=== PATIENT | female | born 1960 | race Caucasian/White ===

== ENCOUNTER 2016-08-30 11:35 | Inpatient (IN) | payer OTHER ==
[2016-08-30] MEDS ORDERED: SODIUM CHLORIDE 0.9% 500 ML IV STA (12:24)
[2016-08-30 12:29] LABS: Glucose,Whole Blood 94 mg/dL (75-99)
--- NOTE | 2016-08-30 12:30 | ED ---
General Adult HPI - General Chief complaint: Altered Mental Status Stated complaint: altered mental status Time Seen by Provider: 08/30/16 12:00 Source: patient, RN notes reviewed Mode of arrival: ambulatory Limitations: no limitations - History of Present Illness Initial comments: This is a 55-year-old female presents emergency Department with amnesia of this morning's events. Patient states she doesn't know why she is here. states that she called him at work because she couldn't remember anything. According to the she does not even recall this morning phone call. Patient still does not know why she is here she does not recall speaking with her . Patient has no pain no headache no numbness or weakness. Family states she is not having slurred speech. Droopy face. Patient states she is able to ambulate and move around normally. The only differences in her today was the fact that she forgot this morning's events and continues to forget current events. Patient denies being sick recently. Patient denies any fever chills or cough recently. Patient states she's been under a lot of stress taking care of her mother plus her job and recently there were some concerns about potential cancer and one of her eyes. - Related Data Home Medications Medication Instructions Recorded Confirmed Multivitamins, Thera [Multivitamin] 1 tab PO DAILY 06/14/16 08/30/16 Allergies Allergy/AdvReac Type Severity Reaction Status Date / Time clarithromycin [From Biaxin] Allergy Rash/Hives Verified 08/30/16 12:28 levofloxacin [From Levaquin] Allergy Rash/Hives Verified 08/30/16 12:28 Review of Systems ROS Statement: Those systems with pertinent positive or pertinent negative responses have been documented in the HPI. ROS Other: All systems not noted in ROS Statement are negative. Past Medical History Past Medical History: No Reported History Additional Past Medical History / Comment(s): Hx. of sinus infections. Finished antx. 1 week ago. History of Any Multi-Drug Resistant Organisms: None Reported Additional Past Surgical History / Comment(s): D & C Past Anesthesia/Blood Transfusion Reactions: No Reported Reaction Past Psychological History: No Psychological Hx Reported Smoking Status: Current every day smoker Past Alcohol Use History: None Reported Additional Past Alcohol Use History / Comment(s): Quit smoking 3 days ago. Smoked 1 PPD x 30 yrs. Past Drug Use History: None Reported - Past Family History Mother Family Medical History: No Reported History Father Family Medical History: Cancer General Exam - General Exam Comments Initial Comments: GENERAL: Patient is well-developed and well-nourished. Patient is nontoxic and well- hydrated and is in no acute distress. ENT: Neck is soft and supple. No significant lymphadenopathy is noted. Oropharynx is clear. Moist mucous membranes. Neck has full range of motion without eliciting any pain. EYES: The sclera were anicteric and conjunctiva were pink and moist. Extraocular movements were intact and pupils were equal round and reactive to light. Eyelids were unremarkable. PULMONARY: Unlabored respirations. Good breath sounds bilaterally. No audible rales rhonchi or wheezing was noted. CARDIOVASCULAR: There is a regular rate and rhythm without any murmurs gallops or rubs. ABDOMEN: Soft and nontender with normal bowel sounds. No palpable organomegaly was noted. There is no palpable pulsatile mass. SKIN: Skin is clear with no lesions or rashes and otherwise unremarkable. NEUROLOGIC: Patient is alert and oriented x3. Cranial nerves II through XII are grossly intact. Motor and sensory are also intact. Normal speech, volume and content. Symmetrical smile. Patient is amnestic of this morning's events and he continues to be amnestic about events occurring now MUSCULOSKELETAL: Normal extremities with adequate strength and full range of motion. No lower extremity swelling or edema. No calf tenderness. LYMPHATICS: No significant lymphadenopathy is noted PSYCHIATRIC: Normal psychiatric evaluation. Limitations: no limitations Course Vital Signs 08/30/16 08/30/16 11:58 13:43 Temperature 98.6 F Pulse Rate 68 56 L Respiratory 20 18 Rate Blood Pressure 176/112 137/70 O2 Sat by Pulse 99 100 Oximetry Medical Decision Making - Medical Decision Making His chest x-ray shows no acute abnormality. CT of the brain shows no acute normalities. I went back in the room and her recollection of the mornings events was slightly improved but she still is amnestic of more recent events. I spoke with Dr. Tang he agreed to admit the patient admit the patient I consult neurology patient will be admitted for rule out CVA even though she is acting more like a transient global amnesia. - Lab Data Result diagrams: 08/30/16 12:37 08/30/16 12:37 Lab Results 08/30/16 08/30/16 08/30/16 Range/Units 12:25 12:37 12:37 WBC 7.5 (3.8-10.6) k/uL RBC 5.26 (3.80-5.40) m/uL Hgb 16.5 H (11.4-16.0) gm/dL Hct 48.3 H (34.0-46.0) % MCV 92.0 (80.0-100.0) fL MCH 31.3 (25.0-35.0) pg MCHC 34.1 (31.0-37.0) g/dL RDW 12.5 (11.5-15.5) % Plt Count 263 (150-450) k/uL Neutrophils % 66 % Lymphocytes % 25 % Monocytes % 5 % Eosinophils % 2 % Basophils % 1 % Neutrophils # 5.0 (1.3-7.7) k/uL Lymphocytes # 1.9 (1.0-4.8) k/uL Monocytes # 0.4 (0-1.0) k/uL Eosinophils # 0.1 (0-0.7) k/uL Basophils # 0.1 (0-0.2) k/uL PT (9.0-12.0) sec INR (<1.1) APTT (22.0-30.0) sec Sodium (137-145) mmol/L Potassium (3.5-5.1) mmol/L Chloride (98-107) mmol/L Carbon Dioxide (22-30) mmol/L Anion Gap mmol/L BUN (7-17) mg/dL Creatinine (0.52-1.04) mg/dL Est GFR (MDRD) Af Amer (>60 ml/min/1.73 sqM) Est GFR (MDRD) Non-Af (>60 ml/min/1.73 sqM) Glucose (74-99) mg/dL POC Glucose (mg/dL) 94 (75-99) mg/dL POC Glu Classroom Instructor ID Bowling, Bharati Calcium (8.4-10.2) mg/dL Total Bilirubin (0.2-1.3) mg/dL AST (14-36) U/L ALT (9-52) U/L Alkaline Phosphatase (38-126) U/L Total Creatine Kinase 70 (30-135) U/L CK-MB (CK-2) 0.9 (0.0-2.4) ng/mL CK-MB (CK-2) Rel Index 1.3 Troponin I <0.012 (0.000-0.034) ng/mL Total Protein (6.3-8.2) g/dL Albumin (3.5-5.0) g/dL 08/30/16 08/30/16 Range/Units 12:37 12:37 WBC (3.8-10.6) k/uL RBC (3.80-5.40) m/uL Hgb (11.4-16.0) gm/dL Hct (34.0-46.0) % MCV (80.0-100.0) fL MCH (25.0-35.0) pg MCHC (31.0-37.0) g/dL RDW (11.5-15.5) % Plt Count (150-450) k/uL Neutrophils % % Lymphocytes % % Monocytes % % Eosinophils % % Basophils % % Neutrophils # (1.3-7.7) k/uL Lymphocytes # (1.0-4.8) k/uL Monocytes # (0-1.0) k/uL Eosinophils # (0-0.7) k/uL Basophils # (0-0.2) k/uL PT 10.3 (9.0-12.0) sec INR 1.0 (<1.1) APTT 25.7 (22.0-30.0) sec Sodium 145 (137-145) mmol/L Potassium 4.5 (3.5-5.1) mmol/L Chloride 106 (98-107) mmol/L Carbon Dioxide 26 (22-30) mmol/L Anion Gap 13 mmol/L BUN 15 (7-17) mg/dL Creatinine 0.82 (0.52-1.04) mg/dL Est GFR (MDRD) Af Amer >60 (>60 ml/min/1.73 sqM) Est GFR (MDRD) Non-Af >60 (>60 ml/min/1.73 sqM) Glucose 97 (74-99) mg/dL POC Glucose (mg/dL) (75-99) mg/dL POC Glu Classroom Instructor ID Calcium 9.6 (8.4-10.2) mg/dL Total Bilirubin 0.5 (0.2-1.3) mg/dL AST 26 (14-36) U/L ALT 41 (9-52) U/L Alkaline Phosphatase 76 (38-126) U/L Total Creatine Kinase (30-135) U/L CK-MB (CK-2) (0.0-2.4) ng/mL CK-MB (CK-2) Rel Index Troponin I (0.000-0.034) ng/mL Total Protein 7.7 (6.3-8.2) g/dL Albumin 4.7 (3.5-5.0) g/dL Disposition Clinical Impression: CVA (cerebral vascular accident) Disposition: ADMITTED IP TO THIS [facility] Time of Disposition: 15:27
[2016-08-30 12:52] LABS: Basophils # (A) 0.1 k/uL (0-0.2); Basophils % (A) 1 %; CHCM 33.9; Eosinophils # (A) 0.1 k/uL (0-0.7); Eosinophils % (A) 2 %; HCT 48.3 % (34.0-46.0); HDW 2.44; HGB 16.5 gm/dL (11.4-16.0); Luc # (Auto) 0.11; Luc % (Auto) 1; Lymphocytes # (A) 1.9 k/uL (1.0-4.8); Lymphocytes % (A) 25 %; MCH 31.3 pg (25.0-35.0); MCHC 34.1 g/dL (31.0-37.0); Mean Platelet Volume 6.8; Monocytes # (A) 0.4 k/uL (0-1.0); Monocytes % (A) 5 %; Neutrophils % (A) 66 %; RBC 5.26 m/uL (3.80-5.40); RDW 12.5 % (11.5-15.5); WBC 7.5 k/uL (3.8-10.6); WBC (Perox) 7.48
[2016-08-30 12:56] LABS: ALT 41 U/L (9-52); AST 26 U/L (14-36); Alkaline Phosphatase 76 U/L (38-126); Anion Gap 13 mmol/L; Blood Urea Nitrogen 15 mg/dL (7-17); Calcium 9.6 mg/dL (8.4-10.2); Carbon Dioxide 26 mmol/L (22-30); Chloride 106 mmol/L (98-107); Glucose 97 mg/dL (74-99); Non-African American GFR(MDRD) >60 (>60 ml/min/1.73 sqM); Potassium 4.5 mmol/L (3.5-5.1); Sodium 145 mmol/L (137-145); Total Bilirubin 0.5 mg/dL (0.2-1.3); Total Protein 7.7 g/dL (6.3-8.2)
--- NOTE | 2016-08-30 13:00 | CT ---
EXAMINATION TYPE: CT brain wo con DATE OF EXAM: 08/30/2016 12:54 PM COMPARISON: NONE INDICATION: Patient complains of disorientation. DLP: 1031 mGycm, Automated exposure control for dose reduction was used. CONTRAST: None. CT of the brain is performed utilizing 3 mm thick sections through the posterior fossa and 3 mm thick sections through the remaining calvarium. Study is performed within 24 hours of arrival to the hosp ital. No abnormal hyperdensity is present to suggest an acute intracranial hemorrhage. No mass lesion is evident. No acute infarcts are evident. Ventricles and sulci are appropriate for the patient age. Paranasal sinuses and mastoid air cells within the [id number] are clear. There are subcutaneous calcifications including the left occipital region the anterior mid for head i n near the vertex. IMPRESSIONS: 1. No acute intracranial process.
[2016-08-30 13:03] LABS: Partial Thromboplastin Time 25.7 sec (22.0-30.0); Prothrombin Time 10.3 sec (9.0-12.0)
[2016-08-30 13:22] LABS: Creatine Kinase 70 U/L (30-135)
[2016-08-30 13:33] LABS: Creatine Kinase MB 0.9 ng/mL (0.0-2.4); Troponin I <0.012 ng/mL (0.000-0.034)
--- NOTE | 2016-08-30 14:09 | XR ---
EXAMINATION TYPE: XR chest 2V DATE OF EXAM: 08/30/2016 1:02 PM COMPARISON: NONE HISTORY: Altered mental status FINDINGS: The lungs are clear and there is no pneumothorax, pleural effusion, or focal pneumonia. Hypertrophi c change of the spine noted. IMPRESSION: 1. No acute process.
[2016-08-30] MEDS ORDERED: ASPIRIN 325 MG TAB PO STA (15:28)
--- NOTE | 2016-08-30 20:08 | P.CNNES ---
History of Present Illness Consult date: 08/30/16 Reason for Consult: Episode of acute amnesia and altered mental status. History of Present Illness: This patient is a 55-year-old right-handed white female who was in her usual state of health earlier this morning. According to her was at bedside and provided the medical history she was fine yesterday evening and did not complain of any particular symptoms. Apparently this morning she awoke and did several routine things that she suddenly had no memory of. She was able to call her at work because she was having difficulty with her memory. She did not appear to have any slurring of her speech on the telephone. The immediately came to the home to see how she was doing. Apparently she appeared to have no memory of the events earlier in the morning. She continued to be quite hesitant in being able to provide details of what happened in the morning. She was brought into the emergency room by her for further evaluation. She was seen in the emergency room by Dr. Hedrick who ordered a computed tomography scan of the brain. A CAT scan of the brain came back normal with no evidence of acute stroke or hemorrhage. Apparently she continued to have some degree of amnesia up until about 3 PM in the emergency room. She is now slowly recollecting some of the events earlier in the day. Patient has been under a great deal of stress as she takes care of her elderly mother at home. She has been caring for her for over 14 years. She was also recently told she may have some form of cancer involving the right retina. She has been seen by Dr. Duenas who was having her see a specialist. These events have caused a great deal of stress for her. She is not sure if this has any correlation to the event of this morning. She denied any headache or facial weakness or slurred speech with this particular episode. She has no previous history of TIA or stroke. She underwent recent laboratory testing in May with all normal lab values. She states her serum cholesterol was only slightly elevated but does not require a statin drug. She has been otherwise quite healthy up until this event. She does now slowly remember the events of yesterday evening and some of the events of this morning. Her clinical history is suggesting possibility of transient global amnesia as a cause of her recent event. We would recommend a complete stroke evaluation for this patient. The patient is now admitted and neurology has been consulted for further evaluation and recommendations. Review of Systems Constitutional: Denies chills, Denies fever Eyes: denies blurred vision, denies pain Ears, nose, mouth and throat: Denies headache, Denies sore throat Cardiovascular: Denies chest pain, Denies shortness of breath Respiratory: Denies cough Gastrointestinal: Denies abdominal pain, Denies diarrhea, Denies nausea, Denies vomiting Genitourinary: Denies dysuria, Denies hematuria Musculoskeletal: Denies myalgias Integumentary: Denies pruritus, Denies rash Neurological: Reports confusion, Reports memory loss, Denies numbness, Denies weakness Psychiatric: Denies anxiety, Denies depression Endocrine: Denies fatigue, Denies weight change Past Medical History Past Medical History: No Reported History Additional Past Medical History / Comment(s): Hx. of sinus infections. BRONCHITIS, ENDOMETREOSIS, "SPOT FOUND BY RETINA-HAS APPT TO SEE SPECIALIST" History of Any Multi-Drug Resistant Organisms: None Reported Past Surgical History: Tubal Ligation Additional Past Surgical History / Comment(s): D & C, COLONOSCOPY Past Anesthesia/Blood Transfusion Reactions: No Reported Reaction Past Psychological History: No Psychological Hx Reported Additional Psychological History / Comment(s): LIVES WITH SPOUSE, IS INDEPENDANT , WORKS AT [employer] IN [employer]. Smoking Status: Current every day smoker Past Alcohol Use History: None Reported Additional Past Alcohol Use History / Comment(s): STARTED SMOKING 1986, 1PPD Past Drug Use History: None Reported - Past Family History Mother Family Medical History: CVA/TIA, Seizure Disorder Additional Family Medical History / Comment(s): DEPRESSION Father Family Medical History: Cancer Additional Family Medical History / Comment(s): LUNG CANCER Medications and Allergies Home Medications Medication Instructions Recorded Confirmed Type Multivitamins, Thera [Multivitamin] 1 tab PO DAILY 06/14/16 08/30/16 History Allergies Allergy/AdvReac Type Severity Reaction Status Date / Time clarithromycin [From Biaxin] Allergy Rash/Hives Verified 08/30/16 12:28 levofloxacin [From Levaquin] Allergy Rash/Hives Verified 08/30/16 12:28 Physical Examination - Vital Signs Vital Signs: Vital Signs Temp Pulse Pulse Resp BP BP Pulse Ox 08/30/16 18:18 65 18 08/30/16 18:17 97.6 F 65 18 161/69 95 08/30/16 18:03 98.6 F 59 L 18 154/75 95 08/30/16 17:36 59 L 59 L 18 154/75 154/76 95 08/30/16 17:33 59 L 18 154/75 95 Intake and Output 08/30/16 08/30/16 08/30/16 06:59 14:59 22:59 Intake Total 660 Output Total 150 Balance 510 Intake: Oral 660 Output: Urine 150 Other: Voiding Method Toilet # Voids 1 - Constitutional General appearance: average body habitus, cooperative - EENT EENT: PERRL, mucous membranes moist - Respiratory Respiratory: lungs clear, normal breath sounds - Cardiovascular Cardiovascular: regular rate, normal S1, normal S2 Extremities: no peripheral edema bilaterally - Gastrointestinal Gastrointestinal: normoactive bowel sounds - Integumentary Integumentary: normal - Neurologic Cranial nerve examination: PERRL, EOMI, VFF, V1/V2/V3 grossly intact, face symmetric, tongue midline, intact gag reflex, intact corneal reflex, normal palatal elevation Speech examination: intact Sensorimotor examination: intact Detailed motor examination: grossly full strength in all extremities Motor examination - right side: 5/5: biceps, triceps, wrist flexion, wrist extension, marketing agent, hip flexors, knee extensors, dorsiflexion, toe extension (EHL) , plantarflexion Motor examination - left side: 5/5: biceps, triceps, wrist flexion, wrist extension, marketing agent, hip flexors, knee extensors, dorsiflexion, toe extension (EHL) , plantarflexion Detailed sensory examination: intact Reflex and gait examination: intact Reflexes: 1+: ankle, bicep, knee, tricep - Musculoskeletal Musculoskeletal: no pain - Psychiatric Psychiatric: mood/affect appropriate, cooperative Results - Laboratory Findings CBC and BMP: 08/30/16 12:37 08/30/16 12:37 Assessment and Plan (1) Transient global amnesia Status: Acute Code(s): G45.4 - TRANSIENT GLOBAL AMNESIA (2) TIA (transient ischemic attack) Status: Acute Code(s): G45.9 - TRANSIENT CEREBRAL ISCHEMIC ATTACK, UNSPECIFIED (3) Retinal tumor of right eye Status: Acute Code(s): D49.81 - NEOPLASM OF UNSPECIFIED BEHAVIOR OF RETINA AND CHOROID (4) Anxiety disorder Status: Acute Code(s): F41.9 - ANXIETY DISORDER, UNSPECIFIED Plan: This patient is a 55-year-old right-handed white female admitted with episode of acute onset of amnesia early this morning. Patient was at home and had done several events as usual in the morning. She called her and she was having difficulty with her ability to recollect earlier events of the morning. Her noted that she was clearly not herself. Return to home and found her to be having difficulty with amnesia. She was taken immediately to the emergency room where she was evaluated in the ER by Dr. Hedrick. She underwent a computed tomography scan of the brain which was entirely normal with no evidence of acute stroke or hemorrhage. She was admitted to the hospital for further evaluation. Her neurological examination at this time is nonfocal. Her clinical history is consistent with an episode of transient global amnesia. We would recommend she undergo a complete stroke evaluation including carotid Doppler ultrasound. Her most recent serum cholesterol was within normal range. We would recommend that she be started on one baby aspirin 81 mg daily for secondary stroke prevention. Patient was explained the natural history of TGA. In most cases this is a very isolated event very similar to a TIA. For these reasons we are recommending a complete stroke evaluation. We will continue to monitor her progress closely and will await the results of her carotid Doppler and other laboratory tests. Her neurological examination otherwise is nonfocal at this time. Her overall prognosis remains guarded. Case was discussed at length with the patient and her . All of their questions were answered. We will continue our stroke workup and we'll give further recommendations pending the test results. Time with Patient: Greater than 30
[2016-08-30 21:18] LABS: Appearance,Urine Clear (Clear); Bacteria,Urine Rare /hpf; Bilirubin,Urine Negative (Negative); Glucose,Urine (UA) Negative (Negative); Ketones,Urine Negative (Negative); Leukocyte Esterase,Urine Moderate (Negative); Mucus,Urine Rare /hpf; Nitrite,Urine Negative (Negative); Particle Count 1453; Protein,Urine Negative (Negative); RBC,Urine 3 /hpf (0-5); Specific Gravity,Urine 1.021 (1.001-1.035); Squamous Epithelial Cell,Urine 3 /hpf (0-4); UA Billing (MACRO vs. MICRO) MICRO; WBC,Urine 17 /hpf (0-5)
[2016-08-30 21:26] VITALS: RESP 16
--- NOTE | 2016-08-30 22:09 | US ---
EXAMINATION TYPE: US carotid duplex BILAT DATE OF EXAM: 08/30/2016 8:58 PM COMPARISON: NONE CLINICAL HISTORY: memory loss, on aspirin. EXAM MEASUREMENTS: RIGHT: Peak Systolic Velocity (PSV) cm/sec ----- Right CCA: 80.1 ----- Right ICA: 54.9 ----- Right ECA: 79.0 ICA/CCA ratio: 0.7 RIGHT: End Diastole cm/sec ----- Right CCA: 15.3 ----- Right ICA: 20.0 ----- Right ECA: 12.0 LEFT: Peak Systolic Velocity (PSV) cm/sec ----- Left CCA: 66.0 ----- Left ICA: 75.7 ----- Left ECA: 72.4 ICA/CCA ratio: 1.1 LEFT: End Diastole cm/sec ----- Left CCA: 18.4 ----- Left ICA: 26.3 ----- Left ECA: 13.1 VERTEBRALS (direction of flow): Right Vertebral: Antegrade Left Vertebral: Antegrade Bilateral wall thickening. No elevated velocities or significant stenosis seen. Plaque seen in lef t bulb Grayscale, color Doppler, spectral Doppler imaging performed of the carotid arteries. IMPRESSION: No hemodynamically significant stenosis of the proximal internal carotid arteries bilater ally by Doppler criteria, and indirect measurement of carotid stenosis
[2016-08-31] MEDS: NICOTINE 7MG/24HR PATCH TRANSDERM SCH ×2 (00:14→07:45)
[2016-08-31] MEDS ORDERED: ASPIRIN 325 MG TAB PO SCH (09:00)
[2016-08-31] MEDS ORDERED: HEPARIN SODIUM,PORCINE 5,000 UNIT/ML 1 ML VIAL SQ SCH (09:00)
--- NOTE | 2016-08-31 09:51 | HP ---
DATE OF ADMISSION: DATE OF SERVICE: 08/30/2016 CHIEF COMPLAINT: Change in mental status. HISTORY OF PRESENT ILLNESS: This 55-year-old woman with a past medical history of multiple medical problems including history of sinus infection, bronchitis, endometriosis being followed by Dr. Langston in the outpatient setting apparently was found to be confused today. The patient was unable to remember today's events. says the patient came home from work because she could not remember anything. The patient was found to have a mild urinary tract infection. The CAT scan did not show acute abnormality. Dr. Villasenor is following the patient closely. TGA is being considered. There is no history of fever, rigors or chills. No history of traumata this time. PAST MEDICAL HISTORY: History of bronchitis, endometriosis, history of tubal ligation. Medications prior to admission include: Multivitamins 1 p.o. b.i.d. ALLERGIES: CLARITHROMYCIN, LEVAQUIN. FAMILY HISTORY: History of CVA, TIA, seizure disorder, depression. REVIEW OF SYSTEMS: ENT: No diminished hearing or vision. CARDIOVASCULAR: No angina or palpitations. RESPIRATORY: No cough and hemoptysis. GI: No nausea. : No dysuria. NERVOUS SYSTEM: As mentioned earlier. ALLERGY/IMMUNOLOGY: No asthma or hayfever. MUSCULOSKELETAL: As mentioned earlier. HEMATOLOGY: No history of anemia. ENDOCRINE: No history of diabetes or hypothyroidism. CONSTITUTIONAL: As mentioned earlier. DERMATOLOGY: Negative. RHEUMATOLOGY: Negative. PSYCHIATRY: As mentioned earlier. PHYSICAL EXAMINATION: Patient is alert and oriented x3. Pulse is 65, blood pressure 161/69, respirations 18, temperature 97.3, pulse ox 94% on room air. HEENT: Conjunctivae normal. NECK: No jugular venous distention. CARDIOVASCULAR: S1 and S2, muffled. RESPIRATORY: Breath sounds diminished at the bases. A few rhonchi. No crackles. ABDOMEN: Soft, nontender. No mass palpable. LEGS: No edema, no swelling. NERVOUS SYSTEM: Higher function as mentioned. Cranial nerves II through XII grossly intact. Moves all four limbs. No sensory cerebellar dysfunction. LYMPHATIC: No lymphadenopathy in the neck, axillae or groin. SKIN: No ulcer, rash or bleeding. LABS: Hemoglobin 16.5. CMP within normal limits. UA noted. ASSESSMENT: 1. Transient amnesia, possibly TGA. 2. Possible acute transient ischemic attack. 3. Urinary tract infection with possible early sepsis. 4. History of bronchitis. 5. History of endometriosis. 6. History of nicotine dependence. 7. FULL CODE. RECOMMENDATIONS AND DISCUSSION: In this 55-year-old woman who presented with multiple medical problems, will monitor the patient closely. Continue the current medications, continue symptomatic treatment. Continue with antiplatelet agents. Smoking cessation advised. DVT prophylaxis. Complete neurovascular work-up. Otherwise, continue to monitor. Prognosis guarded because of the multiple complex medical issues. Further recommendations to follow. Copy of dictation forwarded to Dr. Langston who is the primary physician.
[2016-08-31 11:16] VITALS: PULSE 65
--- NOTE | 2016-08-31 11:36 | ECHOF ---
Referral Reason:Stroke MEASUREMENTS -------- HEIGHT: 175.3 cm WEIGHT: 81.7 kg BP: 131/59 RVIDd: 3.0 cm (< 3.3) IVSd: 1.1 cm (0.6 - 1.1) LVIDd: 4.0 cm (3.9 - 5.3) LVPWd: 1.1 cm (0.6 - 1.1) IVSs: 1.6 cm LVIDs: 2.5 cm LVPWs: 1.3 cm LA Diam: 3.3 cm (2.7 - 3.8) LAESV Index (A-L): 29.25 ml/m Ao Diam: 2.9 cm (2.0 - 3.7) AV Cusp: 2.2 cm (1.5 - 2.6) MV EXCURSION: 17.766 mm (> 18.000) MV EF SLOPE: 57 mm/s (70 - 150) EPSS: 0.4 cm MV E Collins: 0.81 m/s MV DecT: 231 ms MV A Collins: 0.80 m/s MV E/A Ratio: 1.01 RAP: 5.00 mmHg RVSP: 14.89 mmHg FINDINGS -------- Sinus rhythm. This was a technically good study. The left ventricular size is normal. There is borderline concentric left ventricular hypertrophy. Overall left ventricular systolic function is normal with, an EF between 60 - 65 %. The right ventricle is normal in size and function. LA is midly dilated 29-33ml/m2. The right atrium is normal in size. The aortic valve is trileaflet and appears structurally normal. Normal appearing mitral valve. No mitral regurgitation. Trace tricuspid regurgitation present. Trace/mild (physiologic) pulmonic regurgitation. The aortic root size is normal. Normal inferior vena cava with normal inspiratory collapse consistent with estimated right atrial pressure of 5 mmHg. There is no pericardial effusion. CONCLUSIONS -------- 1. Sinus rhythm. 2. Normal appearing mitral valve. 3. Trace tricuspid regurgitation present. 4. Trace/mild (physiologic) pulmonic regurgitation. 5. The aortic root size is normal. 6. Normal inferior vena cava with normal inspiratory collapse consistent with estimated right atrial pressure of 5 mmHg. 7. There is no pericardial effusion. 8. This was a technically good study. 9. The left ventricular size is normal. 10. There is borderline concentric left ventricular hypertrophy. 11. Overall left ventricular systolic function is normal with, an EF between 60 - 65 %. 12. The right ventricle is normal in size and function. 13. LA is midly dilated 29-33ml/m2. 14. The right atrium is normal in size. 15. The aortic valve is trileaflet and appears structurally normal. COIL INSPECTOR: Helga Farrar RDCS
[2016-08-31 15:41] VITALS: BP 138/76; TEMP 96.8
--- NOTE | 2016-08-31 18:01 | P.PN ---
Subjective This patient is a 55-year-old right-handed white female who was admitted yesterday to the hospital with symptoms of acute amnesia. She underwent a full neurological evaluation yesterday including computed tomography scan of the brain which came back negative for acute stroke or hemorrhage. She underwent a carotid Doppler ultrasound which is negative for any significant carotid artery stenosis. She underwent routine EEG today which was reviewed and is normal for her age. Her clinical history is consistent with an episode of transient global amnesia. We reviewed the results today with the patient. We suggest she be maintained on 1 aspirin daily for secondary stroke prevention. We've explained that the episode of amnesia should continue to improve with time. Patient is being considered for discharge home later today. She may follow-up in the outpatient neurology clinic in 3-4 weeks. Objective - Vital Signs Vital signs: Vital Signs Temp 96.8 F L 08/31/16 15:40 Pulse 65 08/31/16 15:40 Resp 16 08/31/16 15:40 BP 138/76 08/31/16 15:40 Pulse Ox 95 08/31/16 15:40 Intake & Output 08/30/16 08/31/16 08/31/16 18:59 06:59 18:59 Intake Total 660 546 Output Total 150 Balance 510 546 Weight 86.5 kg Intake: IV 70 .9 @ 20 20 cefTRIAXone 1,000 mg In 50 Sodium Chloride 0.9% 50 ml @ 100 mls/hr IVPB Q24H [facility] Rx#:[id number] Oral 660 476 Output: Urine 150 Other: Voiding Method Toilet Toilet Toilet # Voids 1 1 - Exam Physical examination: PHYSICAL EXAMINATION: Patient is resting comfortably in bed. VITAL SIGNS: Blood pressure is [138/76]. Heart rate is [65]. Respiration is [16] . Temperature is [97.0]. HEENT: Head is atraumatic, neck is supple, there were no carotid bruits. CHEST: Lungs are clear to auscultation and percussion. CARDIAC: S1, S2 normal rate and rhythm. There is no murmur. ABDOMEN: Soft and nontender. Bowel sounds are present. EXTREMITIES: There is no pedal edema. Peripheral pulses are present. NEUROLOGICAL EXAMINATION: MENTAL STATUS: Patient is awake, alert, oriented x3. Speech is fluent with no evidence of aphasia or dysarthria. Memory and intellectual function are appropriate for age. CRANIAL NERVE EXAMINATION: Cranial nerves 2 through 12 are grossly intact. MOTOR EXAMINATION: There was no pronator drift. Muscle tone is normal. Muscle strength testing reveal 4/5 strength throughout. SENSORY EXAMINATION: Intact to pinprick, light touch, vibration and proprioception. DEEP TENDON REFLEXES: 1+ and symmetric. Plantar response is flexor bilaterally. COORDINATION AND GAIT: Finger-nose testing and rapid alternating movements are normal. Patient has a normal based gait. - Labs CBC & Chem 7: 08/30/16 12:37 08/30/16 12:37 Labs: Abnormal Lab Results - Last 24 Hours (Table) 08/30/16 Range/Units 21:05 Urine Blood Trace H (Negative) Ur Leukocyte Esterase Moderate H (Negative) Urine WBC 17 H (0-5) /hpf Urine Bacteria Rare H (None) /hpf Urine Mucus Rare H (None) /hpf Assessment and Plan (1) Transient global amnesia Status: Acute Code(s): G45.4 - TRANSIENT GLOBAL AMNESIA (2) TIA (transient ischemic attack) Status: Acute Code(s): G45.9 - TRANSIENT CEREBRAL ISCHEMIC ATTACK, UNSPECIFIED (3) Retinal tumor of right eye Status: Acute Code(s): D49.81 - NEOPLASM OF UNSPECIFIED BEHAVIOR OF RETINA AND CHOROID (4) Anxiety disorder Status: Acute Code(s): F41.9 - ANXIETY DISORDER, UNSPECIFIED Plan: This patient is a 55-year-old right-handed white female admitted with episode of acute onset of amnesia early this morning. Patient was at home and had done several events as usual in the morning. She called her and she was having difficulty with her ability to recollect earlier events of the morning. Her noted that she was clearly not herself. Return to home and found her to be having difficulty with amnesia. She was taken immediately to the emergency room where she was evaluated in the ER by Dr. Hedrick. She underwent a computed tomography scan of the brain which was entirely normal with no evidence of acute stroke or hemorrhage. She was admitted to the hospital for further evaluation. Her neurological examination at this time is nonfocal. Her clinical history is consistent with an episode of transient global amnesia. We would recommend she undergo a complete stroke evaluation including carotid Doppler ultrasound. Her most recent serum cholesterol was within normal range. We would recommend that she be started on one baby aspirin 81 mg daily for secondary stroke prevention. Patient was explained the natural history of TGA. In most cases this is a very isolated event very similar to a TIA. For these reasons we are recommending a complete stroke evaluation. We will continue to monitor her progress closely and will await the results of her carotid Doppler and other laboratory tests. Her neurological examination otherwise is nonfocal at this time. The patient underwent carotid Doppler ultrasound late yesterday evening. Report today indicates no significant carotid artery stenosis. Patient also had a routine EEG performed today which was reviewed and is normal for age. This patient's clinical findings and exam findings are consistent with an episode of transient global amnesia. She may continue on aspirin for secondary stroke prevention. She may follow-up in the outpatient neurology clinic in 3-4 weeks. Her overall prognosis at this time remains fair.
--- NOTE | 2016-09-01 10:34 | EEG ---
DATE OF SERVICE: 08/31/2016 INDICATIONS FOR EXAMINATION: This patient is a 55-year-old female being evaluated for episode of transient global amnesia. AGE: 55Y EEG FINDINGS: A routine 21-channel, awake digital EEG recording was accomplished utilizing the 10 - 20 international system with bipolar and referential montages. The background activity in the most alert resting state consists of a low to medium amplitude, fairly well-developed and well-sustained 8 Hz activity over the posterior head regions. This posterior rhythm attenuates to eye opening. There is a small amount of low amplitude 18 - 20 Hz beta activity seen maximally over the anterior head regions. Muscle and movement artifact was observed on a few occasions during the tracing. Hyperventilation was not performed. Photic stimulation at flash frequencies of 2 - 30 Hz produced a good symmetrical occipital driving response. No epileptiform discharges were seen. IMPRESSION: This EEG is normal for the patient's age. The EEG failed to reveal any focal, lateralized or epileptiform abnormalities. Clinical correlation is recommended.
--- NOTE | 2016-09-01 23:12 | DS ---
DATE OF ADMISSION: 08/30/2016 DATE OF DISCHARGE: 08/31/2016 FINAL DIAGNOSES: 1. Transient ischemic attack, possible transient global amnesia. 2. Transient amnesia. 3. Acute urinary tract infection with possible early sepsis, present on admission, improved. 4. History of bronchitis. 5. History of endometriosis. 6. History of nicotine dependence. 7. FULL CODE. DISCHARGE DISPOSITION: The patient will be discharged in stable condition with guarded prognosis. HISTORY OF PRESENT ILLNESS: This 55-year-old woman with a past medical history of multiple medical problems was admitted with change in mental status as well as dysarthria. Patient was confused. The possibility of TGA was considered. The patient also had a UTI; early sepsis was also considered. Cultures were negative. Treated empirically with antibiotics. Improved significantly. On exam, vitals are stable. CARDIOVASCULAR SYSTEM: S1, S2 muffled. ABDOMEN: Soft. NERVOUS SYSTEM: No focal deficit. DISCHARGE ADVICE AND MEDICATIONS: 1. Diet is cardiac. 2. Activity limited until followup. 3. Follow up with Dr. Langston in 2 to 3 days. 4. Follow up with Dr. Stevie Villasenor as advised (Neurology). 5. Ecotrin 325 mg p.o. daily. 6. Ceftin 500 mg p.o. b.i.d. 7. Multivitamin 1 p.o. daily. 8. Habitrol daily. Once again, the patient will be discharged in stable condition with guarded prognosis.
== END 2016-08-31 17:32 | disposition home or self-care (01) | DRG 70 ==
LOC: EC 11:35 → 6SEL 15:28
PROVIDERS: ADMIT Hospitalist; ATTEND Hospitalist
DX: G45.4 Transient global amnesia (principal); A41.9 Sepsis, unspecified organism; G45.9 Transient cerebral ischemic attack, unspecified; N39.0 Urinary tract infection, site not specified; D49.81 Neoplasm of unspecified behavior of retina and choroid; R47.1 Dysarthria and anarthria; R41.0 Disorientation, unspecified; F41.9 Anxiety disorder, unspecified; F17.200 Nicotine dependence, unspecified, uncomplicated; Z98.51 Tubal ligation status; Z82.0 Family history of epilepsy and other diseases of the nervous system; Z81.8 Family history of other mental and behavioral disorders; Z80.1 Family history of malignant neoplasm of trachea, bronchus and lung; Z88.1 Allergy status to other antibiotic agents; Z86.19 Personal history of other infectious and parasitic diseases; Z87.42 Personal history of other diseases of the female genital tract; Z71.6 Tobacco abuse counseling; Z82.3 Family history of stroke; Z63.6 Dependent relative needing care at home; Z87.09 Personal history of other diseases of the respiratory system
CPT/HCPCS: 36415; 70450; 71020; 80053; 80306; 81001; 82550; 82553; 84484; 85025; 85610; 85730; 93005; 93306; 93880; 95816; 96360; 96361; 99285

== ENCOUNTER → 2017-07-27 | Outpatient (CLI) | payer OTHER ==
--- NOTE | 2017-07-28 12:46 | MM ---
Reason for exam: screening (asymptomatic). Last mammogram was performed 1 year and 1 month ago. History: Patient is postmenopausal. Family history of breast cancer in paternal grandmother at age 80. Physical Findings: A clinical breast exam by your physician is recommended on an annual basis and results should be correlated with mammographic findings. MG Screening Mammo w CAD Bilateral CC and MLO view(s) were taken. Prior study comparison: July 11, 2016, bilateral MG screening mammo w CAD. June 25, 2015, bilateral MG screening mammo w CAD. The breast tissue is heterogeneously dense. This may lower the sensitivity of mammography. Benign calcifications in the right breast. No significant changes when compared with prior studies. ASSESSMENT: Benign, BI-RAD 2 RECOMMENDATION: Routine screening mammogram of both breasts in 1 year.
== END | disposition home or self-care (01) ==
LOC: RADMAMWWP 08:09
PROVIDERS: ATTEND Family Medicine
DX: Z12.31 Encounter for screening mammogram for malignant neoplasm of breast (principal); Z01.419 Encounter for gynecological examination (general) (routine) without abnormal findings

== ENCOUNTER → 2017-11-24 | Outpatient (CLI) | payer OTHER ==
[2017-11-24 07:51] LABS: HCT 45.3 % (34.0-46.0); HGB 14.6 gm/dL (11.4-16.0); MCH 28.5 pg (25.0-35.0); MCHC 32.3 g/dL (31.0-37.0); MCV 88.1 fL (80.0-100.0); Mean Platelet Volume 7.3; Platelet Count 283 k/uL (150-450); RBC 5.14 m/uL (3.80-5.40); RDW 12.8 % (11.5-15.5); WBC 6.9 k/uL (3.8-10.6)
[2017-11-24 11:18] LABS: Albumin 4.4 g/dL (3.5-5.0); Calcium 9.8 mg/dL (8.4-10.2); Potassium 4.9 mmol/L (3.5-5.1); Total Bilirubin 0.4 mg/dL (0.2-1.3); Total Protein 7.5 g/dL (6.3-8.2)
[2017-11-24 11:31] LABS: T4, Free (Free Thyroxine) 1.13 ng/dL (0.78-2.19)
== END | disposition home or self-care (01) ==
LOC: LABWHC1 07:03
PROVIDERS: ATTEND Internal Medicine Endocrinology, Diabetes & Metabolism
DX: R53.83 Other fatigue (principal)
CPT/HCPCS: 36415; 80053; 82533; 82607; 83001; 84146; 84439; 84443; 84480; 84481; 85027

== ENCOUNTER → 2018-07-31 | Outpatient (CLI) | payer OTHER ==
--- NOTE | 2018-08-01 08:11 | MM ---
Reason for exam: screening (asymptomatic). Last mammogram was performed 1 year ago. History: Patient is postmenopausal. Family history of breast cancer in paternal grandmother at age 80. Physical Findings: A clinical breast exam by your physician is recommended on an annual basis and results should be correlated with mammographic findings. MG 3D Screening Mammo W/Cad Bilateral CC and MLO view(s) were taken. Prior study comparison: July 27, 2017, bilateral MG screening mammo w CAD. July 11, 2016, bilateral MG screening mammo w CAD. The breast tissue is heterogeneously dense. This may lower the sensitivity of mammography. There is no discrete abnormality. No significant changes when compared with prior studies. ASSESSMENT: Negative, BI-RAD 1 RECOMMENDATION: Routine screening mammogram of both breasts in 1 year.
== END | disposition home or self-care (01) ==
LOC: RADMAMWWP 07:45
PROVIDERS: ATTEND Family Medicine
DX: Z12.31 Encounter for screening mammogram for malignant neoplasm of breast (principal)
CPT/HCPCS: 77063; 77067

== ENCOUNTER → 2019-04-16 | Outpatient (CLI) | payer OTHER ==
--- NOTE | 2019-04-16 10:13 | US ---
EXAMINATION TYPE: US venous doppler duplex LE RT DATE OF EXAM: 04/16/2019 10:04 AM COMPARISON: NONE CLINICAL HISTORY: M79.604 Pain in R leg. Edema and pain right leg SIDE PERFORMED: right TECHNIQUE: The lower extremity deep venous system is examined utilizing real time linear array sonog javi with graded compression, doppler sonography and color-flow sonography. VESSELS IMAGED: External Iliac Vein (EIV) Common Femoral Vein Deep Femoral Vein Greater Saphenous Vein * Femoral Vein Popliteal Vein Small Saphenous Vein * Proximal Calf Veins (* superficial vessels) Right Leg: No evidence of DVT as visualized Grayscale, color doppler, spectral doppler imaging performed of the deep veins of the right lower ext remity. There is normal flow, compressibility, vascular waveforms. IMPRESSION: No ultrasound evidence for acute DVT in the right lower extremity.
== END | disposition home or self-care (01) ==
LOC: RADUSWWP 09:40
PROVIDERS: ATTEND Family Medicine
DX: M79.604 Pain in right leg (principal)

== ENCOUNTER → 2019-09-13 | Outpatient (CLI) | payer OTHER ==
--- NOTE | 2019-09-16 09:40 | MM ---
Reason for exam: screening (asymptomatic). Last mammogram was performed 1 year and 1 month ago. History: Patient is postmenopausal. Family history of breast cancer in paternal grandmother at age 80. Physical Findings: A clinical breast exam by your physician is recommended on an annual basis and results should be correlated with mammographic findings. MG 3D Screening Mammo W/Cad Bilateral CC and MLO view(s) were taken. Prior study comparison: July 31, 2018, bilateral MG 3d screening mammo w/cad. July 27, 2017, bilateral MG screening mammo w CAD. The breast tissue is heterogeneously dense. This may lower the sensitivity of mammography. Stable benign calcifications. There is no discrete abnormality. No significant changes when compared with prior studies. ASSESSMENT: Benign, BI-RAD 2 RECOMMENDATION: Routine screening mammogram of both breasts in 1 year.
== END | disposition home or self-care (01) ==
LOC: RADMAMWWP 07:41
PROVIDERS: ATTEND Internal Medicine
DX: Z12.31 Encounter for screening mammogram for malignant neoplasm of breast (principal)
CPT/HCPCS: 77063; 77067

== ENCOUNTER → 2020-10-22 | Outpatient (CLI) | payer OTHER ==
--- NOTE | 2020-10-23 11:50 | MM ---
Reason for exam: screening (asymptomatic). Last mammogram was performed 1 year and 1 month ago. History: Patient is postmenopausal. Family history of breast cancer in paternal grandmother at age 80. Physical Findings: A clinical breast exam by your physician is recommended on an annual basis and results should be correlated with mammographic findings. MG 3D Screening Mammo W/Cad Bilateral CC and MLO view(s) were taken. Prior study comparison: September 13, 2019, bilateral MG 3d screening mammo w/cad. July 31, 2018, bilateral MG 3d screening mammo w/cad. The breast tissue is heterogeneously dense. This may lower the sensitivity of mammography. Focal asymmetry lower outer left breast zone C. ASSESSMENT: Incomplete: need additional imaging evaluation, BI-RAD 0 RECOMMENDATION: Special view mammogram of the left breast. If lesion persists on supplemental views, image directed ultrasound is recommended. [facility] will attempt to contact patient to return for supplemental views and ultrasound if indicated.
== END ==
LOC: RADMAMWWP 08:06
PROVIDERS: ATTEND Family Medicine
DX: Z12.31 Encounter for screening mammogram for malignant neoplasm of breast (principal); R92.8 Other abnormal and inconclusive findings on diagnostic imaging of breast
CPT/HCPCS: 77063; 77067

== ENCOUNTER → 2020-10-27 | Outpatient (CLI) | payer OTHER ==
--- NOTE | 2020-10-27 09:55 | MM ---
Reason for exam: additional evaluation requested from abnormal screening. Last mammogram was performed less than 1 month ago. History: Patient is postmenopausal. Family history of breast cancer in paternal grandmother at age 80. Physical Findings: Nurse did not find any significant physical abnormalities on exam. MG 3D Work Up W/Cad LT Spot compression CC, spot compression MLO, and LM view(s) were taken of the left breast. Prior study comparison: October 22, 2020, bilateral MG 3d screening mammo w/cad. September 13, 2019, bilateral MG 3d screening mammo w/cad. The breast tissue is heterogeneously dense. This may lower the sensitivity of mammography. There is chronic nodularity in the left breast. No persistent distortion. These results were verbally communicated with the patient and result sheet given to the patient on 10/27/20. ASSESSMENT: Probably benign, BI-RAD 3 RECOMMENDATION: Follow-up diagnostic mammogram of the left breast in 6 months.
== END | disposition home or self-care (01) ==
LOC: RADMAMWWP 08:12
PROVIDERS: ATTEND Family Medicine
DX: R92.8 Other abnormal and inconclusive findings on diagnostic imaging of breast (principal)
CPT/HCPCS: 77061; 77065

== ENCOUNTER → 2021-05-04 | Outpatient (CLI) | payer BC ==
--- NOTE | 2021-05-04 09:27 | MM ---
Reason for exam: follow-up at short interval from prior study. Last mammogram was performed 6 months ago. History: Patient is postmenopausal. Family history of breast cancer in paternal grandmother at age 80. Physical Findings: Nurse did not find any significant physical abnormalities on exam. MG 3D Diag Mammo W/Cad LT CC and MLO view(s) were taken of the left breast. Prior study comparison: October 22, 2020, bilateral MG 3d screening mammo w/cad. September 13, 2019, bilateral MG 3d screening mammo w/cad. The breast tissue is heterogeneously dense. This may lower the sensitivity of mammography. No significant new findings when compared with previous films. These results were verbally communicated with the patient and result sheet given to the patient on 05/04/21. ASSESSMENT: Benign, BI-RAD 2 RECOMMENDATION: Return to routine screening mammogram schedule for both breasts. Back on schedule.
== END | disposition home or self-care (01) ==
LOC: RADUSWWP 07:29
PROVIDERS: ATTEND Family Medicine
DX: R92.8 Other abnormal and inconclusive findings on diagnostic imaging of breast (principal); Z80.3 Family history of malignant neoplasm of breast
CPT/HCPCS: 77061; 77065

== ENCOUNTER → 2022-03-01 | Outpatient (CLI) | payer BC ==
--- NOTE | 2022-03-02 10:10 | MM ---
Reason for Exam: Screening (asymptomatic). Last mammogram was performed 1 year(s) and 5 month(s) ago. Patient History: Menarche at age 11. First Full-Term at age 15. Postmenopausal. Paternal grandmother had breast cancer, age 80. Risk Values: Brynn 5 year model risk: 1.1%. NCI Lifetime model risk: 5.0%. Prior Study Comparison: 10/22/2020 Bilateral Screening Mammogram, [facility]. 10/27/2020 Left Diagnostic Mammogram, [facility]. 05/04/2021 Left Diagnostic Mammogram, [facility]. Tissue Density: The breast tissue is heterogeneously dense. This may lower the sensitivity of mammography. Findings: Analyzed By CAD. Single benign-appearing dystrophic calcification in the right breast is redemonstrated. Stable small well-circumscribed masses in the right breast. Occasional scattered benign-appearing round calcification in the bilateral breasts is redemonstrated. Benign-appearing bilateral axillary lymph nodes are again seen. There is no suspicious group of microcalcifications or new suspicious mass in either breast. Overall Assessment: Benign, BI-RAD 2 Management: Screening Mammogram of both breasts in 1 year. A clinical breast exam by your physician is recommended on an annual basis and results should be correlated with mammographic findings. Electronically signed and approved by: Shaw Long M.D.
== END | disposition home or self-care (01) ==
LOC: RADMAMWWP 07:05
PROVIDERS: ATTEND Family Medicine
DX: Z12.31 Encounter for screening mammogram for malignant neoplasm of breast (principal)
CPT/HCPCS: 77063; 77067

== ENCOUNTER → 2023-03-02 | Outpatient (CLI) | payer BC ==
--- NOTE | 2023-03-02 09:21 | MM ---
Reason for Exam: Screening (asymptomatic). Last screening mammogram was performed 12 month(s) ago. Patient History: Menarche at age 11. First Full-Term at age 15. Postmenopausal. Paternal grandmother had breast cancer, age 80. Risk Values: Brynn 5 year model risk: 1.1%. NCI Lifetime model risk: 4.9%. Prior Study Comparison: 10/27/2020 Left Diagnostic Mammogram, [facility]. 05/04/2021 Left Diagnostic Mammogram, [facility]. 03/01/2022 Bilateral MG 3D screening mammo w/cad, [facility]. Tissue Density: There are scattered fibroglandular densities. Findings: Analyzed By CAD. There is no suspicious group of microcalcifications or new suspicious mass in either breast.Right breast benign calcifications. There is no suspicious group of microcalcifications or new suspicious mass in either breast. Overall Assessment: Negative, BI-RAD 1 Management: Screening Mammogram of both breasts in [address] [facility] will attempt to contact patient to return for supplemental views and ultrasound if indicated. Patient should continue monthly self-breast exams. A clinical breast exam by your physician is recommended on an annual basis. This exam should not preclude additional follow-up of suspicious palpable abnormalities. Note on Brynn scores and lifetime risk: 1. A Brynn score greater than 3% is considered moderate risk. If this is the case, consider specialist referral to assess eligibility for a risk reducing agent. 2. If overall lifetime risk for the development of breast cancer is 20% or higher, the patient may qualify for future screening with alternating mammogram and breast MRI. Electronically signed and approved by: Constantino Balderas DO
== END | disposition home or self-care (01) ==
LOC: RADMAMWWP 06:59
PROVIDERS: ATTEND Obstetrics & Gynecology
DX: Z12.31 Encounter for screening mammogram for malignant neoplasm of breast (principal); Z78.0 Asymptomatic menopausal state; Z80.3 Family history of malignant neoplasm of breast
CPT/HCPCS: 77063; 77067

== ENCOUNTER → 2023-09-29 | Outpatient (CLI) | payer BC ==
--- NOTE | 2023-09-29 09:44 | CTL ---
EXAMINATION TYPE: CT Low Dose Lung DATE OF EXAM ORDERED: 09/29/2023 HISTORY: 63 year-old female Z87.891 PERSONAL HX NICOTINE DEPENDENCE . Lung cancer screening. Former smoker, 30 pack-year history. CT DLP: 111.[address] CTDI: 3.2 mGy Automated exposure control for dose reduction was used. SCREENING VISIT: Baseline COMPARISON: None TECHNIQUE: Low dose computed tomography scan was performed through the chest with coronal and sagitta l reconstructions. CT DIAGNOSTIC QUALITY: Satisfactory FINDINGS: The heart is normal size without pericardial effusion. Ectasia ascending aorta at 3.7 cm. Conventional arch vessel branching anatomy. Borderline caliber main right and left pulmonary arteries up to 2.5 cm may reflect underlying pulmona ry arterial hypertension. No thoracic lymphadenopathy by CT size criteria. Mild emphysematous change. Mild bronchial wall thickening. No consolidation or pleural effusion. No s uspicious pulmonary nodules. Small hiatal hernia. Underlying low attenuation of the hepatic parenchyma suggesting fatty infiltrati on. Small hilar splenule. Bones: Scattered mild degenerative disc disease. IMPRESSION: 1. Lung RADS 1, negative. No suspicious pulmonary nodules. 2. COPD with mild emphysema. 3. Small hiatal hernia. CT LUNG RAD AND CT CHEST RECOMMENDATION: Lung-Rad 1 Negative: Continue annual screening with LDCT in 12 months. S Modifier (other clinically significant findings): None
== END | disposition home or self-care (01) ==
LOC: RADCTMAIN 08:12
PROVIDERS: ATTEND Family Medicine
DX: Z12.2 Encounter for screening for malignant neoplasm of respiratory organs (principal); J44.9 Chronic obstructive pulmonary disease, unspecified; J43.9 Emphysema, unspecified; K44.9 Diaphragmatic hernia without obstruction or gangrene; Z87.891 Personal history of nicotine dependence
CPT/HCPCS: 71271

== ENCOUNTER → 2023-09-29 | Outpatient (CLI) | payer BC ==
--- NOTE | 2023-09-29 08:04 | USB ---
Reason for Exam: Clinical finding. Patient History: Menarche at age 11. First Full-Term at age 15. Postmenopausal. Paternal grandmother had breast cancer, age 80. Risk Values: Brynn 5 year model risk: 1.2%. NCI Lifetime model risk: 4.7%. Technique: Method: Targeted. Prior Study Comparison: 05/04/2021 Left Diagnostic Mammogram, [facility]. 03/01/2022 Bilateral MG 3D screening mammo w/cad, [facility]. 03/02/2023 Bilateral MG 3D screening mammo w/cad, [facility]. Findings: The area of palpable concern of the left breast, the axilla of the left breast and the retroareolar of the left breast were scanned. There is a hyperechoic lesion at the area of concern subcutaneous location measuring 1.2 cm felt to reflect lipoma. Indeterminate microcalcifications for which a stereotactic core biopsy is recommended on mammography. Overall Assessment: Suspicious, BI-RAD 4 Management: Stereotactic Core Biopsy of the left breast. A clinical breast exam by your physician is recommended on an annual basis and results should be correlated with mammographic findings. This exam should not preclude additional follow-up of suspicious palpable abnormalities. Results were given to the patient verbally at the time of exam. Electronically signed and approved by: John Sim M.D. Radiologis
--- NOTE | 2023-09-29 08:11 | MM ---
Reason for Exam: Clinical finding. Last screening mammogram was performed 7 month(s) ago. Indicated Problems: Lump or thickening of the left side for 2 Week(s). Patient History: Menarche at age 11. First Full-Term at age 15. Postmenopausal. Paternal grandmother had breast cancer, age 80. Risk Values: Brynn 5 year model risk: 1.2%. NCI Lifetime model risk: 4.7%. Prior Study Comparison: 05/04/2021 Left Diagnostic Mammogram, [facility]. 03/01/2022 Bilateral MG 3D screening mammo w/cad, [facility]. 03/02/2023 Bilateral MG 3D screening mammo w/cad, [facility]. Tissue Density: Left: The breast tissue is heterogeneously dense. This may lower the sensitivity of mammography. Findings: Analyzed By CAD. New indeterminate group of microcalcifications inner upper left breast 6.2 cm from the nipple. Stereotactic core biopsy is recommended. Ultrasound for site of clinical concern is also advised. Overall Assessment: Incomplete: need additional imaging evaluation, BI-RAD 0 Management: Diagnostic Breast Ultrasound of the left breast. . Results were given to the patient verbally at the time of exam. Patient should continue monthly self-breast exams. A clinical breast exam by your physician is recommended on an annual basis. This exam should not preclude additional follow-up of suspicious palpable abnormalities. Note on Brynn scores and lifetime risk: 1. A Brynn score greater than 3% is considered moderate risk. If this is the case, consider specialist referral to assess eligibility for a risk reducing agent. 2. If overall lifetime risk for the development of breast cancer is 20% or higher, the patient may qualify for future screening with alternating mammogram and breast MRI. Electronically signed and approved by: John Sim M.D. Radiologis
== END | disposition home or self-care (01) ==
LOC: RADMAMWWP 07:10
PROVIDERS: ATTEND Family Medicine
DX: R92.332 Mammographic heterogeneous density, left breast (principal); N63.20 Unspecified lump in the left breast, unspecified quadrant; Z80.3 Family history of malignant neoplasm of breast; Z78.0 Asymptomatic menopausal state
CPT/HCPCS: 77061; 77065

== ENCOUNTER → 2023-10-16 | Day surgery (SDC) | payer BC ==
[2023-10-16 09:43] VITALS: BP 120/77; PULSE 67; RESP 14; TEMP 98.3
--- NOTE | 2023-10-19 11:35 | MM ---
Risk Values: Brynn 5 year model risk: 1.2%. NCI Lifetime model risk: 4.7%. Prior Study Comparison: 03/01/2022 Bilateral MG 3D screening mammo w/cad, [facility]. 03/02/2023 Bilateral MG 3D screening mammo w/cad, [facility]. 09/29/2023 Left MG 3D diag mammo w/cad , [facility]. Pathology Description: Location: upper inner quadrant. Marker Left Behind. Specimen Radiograph. Approach: Medial to Lateral Needle Type: Eviva Cores: 6 Skin Nicks: 1 Gauge: 9 The procedure of stereotactic guided core biopsy was explained to the patient. Benefits, alternatives, and risks were discussed. An informed consent was then obtained. The [facility] pathway for biopsy was chosen. [facility] pathway was a medial approach. I performed the localization, followed by the remainder of the procedure. A 9 gauge vacuum assisted biopsy gun was used to obtain core samples. The patient tolerated the procedure well without any immediate complication. The patient was kept in the radiology department for short stay after the procedure and then discharged home in stable condition. Targeted calcifications are identified in specimen mammogram. Post biopsy mammogram shows the clip to appear in satisfactory position relative to the targeted area of concern on the preprocedure images, approximately 9 to 10:00 position. Impression: SUCCESSFUL, UNCOMPLICATED STEREOTACTIC GUIDED CORE BIOPSY OF AREA OF 9-10 O'CLOCK left breast microcalcifications. Pathology Results: Result: Benign, Fibrocystic change. LEFT BREAST, STEREOTACTIC CORE BIOPSY: Proliferative fibrocystic change with columnar cell change, apocrine metaplasia, usual ductal hyperplasia, and focal microcalcification. Mild periductal chronic inflammation with focal mammary duct ectasia. Negative for malignancy. Overall Assessment: Benign Management: Diagnostic Mammogram of the left breast in 6 months. Electronically signed and approved by: Aleks Ca M.D. Radiologist
== END ==
LOC: RADMAMWWP 07:01
PROVIDERS: ATTEND Surgery
DX: N60.42 Mammary duct ectasia of left breast (principal)
CPT/HCPCS: 88305; 19081; A4648; J2001

== ENCOUNTER → 2024-03-07 | Outpatient (CLI) | payer BC ==
--- NOTE | 2024-03-14 21:56 | MM ---
Reason for Exam: Screening (asymptomatic). Last screening mammogram was performed 12 month(s) ago. Patient History: Menarche at age 11. First Full-Term at age 15. Postmenopausal. 10/16/2023, Benign MG stereo VAD BX LT on the left side. Paternal grandmother had breast cancer, age 80. Risk Values: Brynn 5 year model risk: 1.4%. NCI Lifetime model risk: 5.6%. Prior Study Comparison: 03/01/2022 Bilateral MG 3D screening mammo w/cad, [facility]. 03/02/2023 Bilateral MG 3D screening mammo w/cad, [facility]. 09/29/2023 Left MG 3D diag mammo w/cad LT, [facility]. Tissue Density: The breasts are heterogeneously dense, which may obscure small masses. Findings: Analyzed By CAD. Unchanged bilateral areas of asymmetric density. Unchanged dystrophic calcification upper outer right breast. There is no suspicious group of microcalcifications or new suspicious mass in either breast. Overall Assessment: Benign, BI-RAD 2 Management: Screening Mammogram of both breasts in 1 year. . Patient should continue monthly self-breast exams. A clinical breast exam by your physician is recommended on an annual basis. This exam should not preclude additional follow-up of suspicious palpable abnormalities. Note on Brynn scores and lifetime risk: 1. A Brynn score greater than 3% is considered moderate risk. If this is the case, consider specialist referral to assess eligibility for a risk reducing agent. 2. If overall lifetime risk for the development of breast cancer is 20% or higher, the patient may qualify for future screening with alternating mammogram and breast MRI. Electronically signed and approved by: Aleks Ca M.D. Radiologist
== END | disposition home or self-care (01) ==
LOC: RADMAMWWP 10:18
PROVIDERS: ATTEND Surgery
DX: Z12.31 Encounter for screening mammogram for malignant neoplasm of breast (principal); R92.333 Mammographic heterogeneous density, bilateral breasts; Z78.0 Asymptomatic menopausal state; Z80.3 Family history of malignant neoplasm of breast
CPT/HCPCS: 77063; 77067

== ENCOUNTER → 2024-10-29 | Outpatient (CLI) | payer MEDICARE ==
--- NOTE | 2024-10-29 09:31 | CTL ---
EXAMINATION TYPE: CT Low Dose Lung DATE OF EXAM: 10/29/2024 9:11 AM COMPARISON: 09/29/2023 CLINICAL INDICATION: Female, 64 years old with history of Z12.2 ENCNTR SCREEN FOR MALIGNANT NEOPLASM OF RESP; personal tobacco use, history of tobacco use. TECHNIQUE: Multiple axial non-contrast scans were obtained from approximately the lung apices through the upper abdomen. Coronal and sagittal reformatted images were obtained. Low dose technique was uti lized. MIP were created on a separate workstation and submitted for review. CT DLP: 73.2 mGycm, Automated exposure control for dose reduction was used. CT Contrast: Contrast used: None Oral contrast used: None FINDINGS: Lack of intravenous contrast and low dose technique limits the evaluation of the vascular and soft ti ssue structures. LUNGS: No evidence of pulmonary fibrosis. No evidence of focal consolidation, pneumothorax or pleural effusion. Centrilobular emphysema changes. Nodules: RUL: None. RML: None. RLL: None. DEON: None. LLL: None. AIRWAY: Patent and unremarkable. HEART: Size within normal limits. Mild coronary artery calcifications present. MEDIASTINUM: No gross evidence of adenopathy. VASCULATURE: No aortic aneurysm. MUSCULOSKELETAL: No acute osseous abnormalities SOFT TISSUES/LYMPH NODES: Unremarkable. LOWER NECK: No significant findings. UPPER ABDOMEN: No significant findings. IMPRESSION: 1. No clinically significant pulmonary nodules. 2. Mild emphysema. CT LUNG RAD AND CT CHEST RECOMMENDATION: Lung-Rad 1 Negative: Continue annual screening with LDCT in 12 months. S Modifier (other clinically significant findings): None Recommend smoking cessation (if current smoker), or continuation of smoking cessation (if prior smoke r). Annual screening for lung cancer with low-dose computed tomography is recommended in adults ages 55 to 77 years who have a 30 pack-year smoking history and currently smoke or have quit within the pa st 15 years. Screening should be discontinued once a person has not smoked for 15 years or develops a health problem that substantially limits life expectancy or the ability or willingness to have curat chris lung surgery. Lung rads 2021 [email or web address] [email or web address], , 10/29/2024 9:29 AM
== END | disposition home or self-care (01) ==
LOC: RADCTMAIN 08:42
PROVIDERS: ATTEND Family Medicine
DX: Z12.2 Encounter for screening for malignant neoplasm of respiratory organs (principal); J43.2 Centrilobular emphysema; Z87.891 Personal history of nicotine dependence
CPT/HCPCS: 71271